=== PATIENT | female | born 1940 ===

== ENCOUNTER 2019-11-16 14:48 | Inpatient (IN) | payer MEDICARE, OTHER ==
[~2019-11-16] VITALS: Ht 152 cm; Wt 111.3 kg
[2019-11-16] MEDS ORDERED: ONDANSETRON 4 MG/2 ML (SDV) Z0FRAN IV PRN (15:15)
[2019-11-16] MEDS ORDERED: ACETAMINOPHEN 325 MG TABLET PO PRN (15:15)
[2019-11-16] MEDS ORDERED: guaiFENesin SYRUP 100 MG/5 ML 10 ML (ROBITUSSIN SF) PO PRN (15:15)
[2019-11-16] MEDS ORDERED: ENOXAPARIN 40 MG/0.4 ML (LOVENOX) SYR SC SCH (15:15)
[2019-11-16] MEDS ORDERED: ENOXAPARIN 40 MG/0.4 ML (LOVENOX) SYR ONE (17:25)
[2019-11-16 18:15] LABS: BASOPHILS % (AUTO) 1 % (0-10); EOSINOPHILS # (AUTO) 0.1 10^3/uL (0.0-0.3); EOSINOPHILS % (AUTO) 2 % (0-10); HEMATOCRIT 28 % (35-52); HEMOGLOBIN 8.3 g/dL (11.5-16.0); LYMPHOCYTES # (AUTO) 1.1 10^3/uL (1.0-4.0); LYMPHOCYTES % (AUTO) 31 % (12-44); MEAN CORPUSCULAR HEMOGLOBIN 27 pg (25-34); MEAN CORPUSCULAR HGB CONC 30 g/dL (32-36); MEAN CORPUSCULAR VOLUME 92 fL (80-99); MEAN PLATELET VOLUME 9.5 fL (9.0-12.2); MONOCYTES # (AUTO) 0.6 10^3/uL (0.0-1.0); MONOCYTES % (AUTO) 17 % (0-12); NEUTROPHILS # (AUTO) 1.7 10^3/uL (1.8-7.8); NEUTROPHILS % (AUTO) 48 % (42-75); PLATELET COUNT 238 10^3/uL (130-400); WHITE BLOOD COUNT 3.6 10^3/uL (4.3-11.0)
--- NOTE | 2019-11-16 18:20 | NUR ---
REPORT RECEIVED FROM JUDITH STOCK RN
[2019-11-16 18:25] LABS: ALBUMIN 3.4 GM/DL (3.2-4.5); POTASSIUM 3.4 MMOL/L (3.6-5.0)
[2019-11-16 18:26] LABS: CALCIUM 8.6 MG/DL (8.5-10.1)
[2019-11-16 18:29] LABS: BILIRUBIN,TOTAL 0.9 MG/DL (0.1-1.0)
[2019-11-16 18:31] LABS: CREATININE SERUM 1.39 MG/DL (0.60-1.30)
--- NOTE | 2019-11-16 18:44 | NUR ---
PT ARRIVED TO ROOM 431, ALEJANDRO NEEDS AT THIS TIME, CALL LIGHT IN REACH, WILL CONTINUE TO MONITOR
[2019-11-16] MEDS: DICLOFENAC 1% GEL 100 GM (VOLTAREN) TUBE TOP SCH (23:41)
[2019-11-17 05:57] LABS: BASOPHILS % (AUTO) 0 % (0-10); EOSINOPHILS # (AUTO) 0.1 10^3/uL (0.0-0.3); EOSINOPHILS % (AUTO) 3 % (0-10); HEMATOCRIT 28 % (35-52); HEMOGLOBIN 8.3 g/dL (11.5-16.0); LYMPHOCYTES # (AUTO) 1.4 10^3/uL (1.0-4.0); LYMPHOCYTES % (AUTO) 36 % (12-44); MEAN CORPUSCULAR HEMOGLOBIN 27 pg (25-34); MEAN CORPUSCULAR HGB CONC 29 g/dL (32-36); MEAN CORPUSCULAR VOLUME 90 fL (80-99); MONOCYTES # (AUTO) 0.7 10^3/uL (0.0-1.0); MONOCYTES % (AUTO) 18 % (0-12); NEUTROPHILS # (AUTO) 1.6 10^3/uL (1.8-7.8); NEUTROPHILS % (AUTO) 42 % (42-75); PLATELET COUNT 230 10^3/uL (130-400); WHITE BLOOD COUNT 3.8 10^3/uL (4.3-11.0)
[2019-11-17 06:13] LABS: ALBUMIN 3.2 GM/DL (3.2-4.5)
[2019-11-17 06:14] LABS: POTASSIUM 3.4 MMOL/L (3.6-5.0)
[2019-11-17 06:15] LABS: CALCIUM 8.4 MG/DL (8.5-10.1)
[2019-11-17 06:16] LABS: TOTAL PROTEIN 5.8 GM/DL (6.4-8.2)
[2019-11-17 06:18] LABS: BILIRUBIN,TOTAL 0.7 MG/DL (0.1-1.0)
[2019-11-17 06:20] LABS: CREATININE SERUM 1.32 MG/DL (0.60-1.30)
--- NOTE | 2019-11-17 07:27 | Diagnostic Imaging Report ---
EXAMINATION: Chest 1 view HISTORY: Pneumonia, COVID positive COMPARISON: None available. FINDINGS: Heart size is enlarged. Pulmonary vasculature is normal. A left-sided cardiac pacemaker is present. Calcification of the aorta. Patchy airspace opacities within the right upper lung and both lung bases. No pleural effusion or pneumothorax. The osseous structures are intact. IMPRESSION: 1. Patchy airspace opacities within the lungs compatible with a pneumonia. 2. Cardiomegaly. Dictated by: Dictated on workstation # [id number]
[2019-11-17] MEDS: dexAMETHasone 6 MG TAB (DECADRON) PO SCH (08:04)
[2019-11-17] MEDS: HYDROcodone/APAP 5 MG/325 MG (LORTAB) TAB PO PRN ×2 (08:08→16:56)
[2019-11-17] MEDS ORDERED: ENOXAPARIN 60 MG/0.6 ML (LOVENOX) SYR SC SCH (09:00)
[2019-11-17] MEDS: DICLOFENAC 1% GEL 100 GM (VOLTAREN) TUBE TOP SCH ×4 (09:34→20:25)
--- NOTE | 2019-11-17 11:54 | History & Physical-Hospitalist ---
History of Present Illness HPI/Chief Complaint Pt is a 79yoCF with a PMH of oxygen dependent COPD, NIDDMII, HTN, pAF, who was direct admitted from [facility] for COVID19. She was recently at [facility] for a stroke work up which was negative. She was found instead apparently to be overtreated for hypertension and her antihypertensives were decreased. She was transferred to [facility] on swing bed status. She developed a fever and cough and COVID testing was done. This was positive. She was tested for COVID just prior to DC from [facility] and was negative at that time. I spoke with the patient and her daughter and both are unsure if they believe the that she actually has COVID. Daughter states that she thinks they were treating her mom "like a leper" and just wanted her out. We discussed treatment options for COVID but they have declined convalescent plasma at this time until theyr'e sure she's positive for COVID. Source: patient Date Seen 11/17/19 Time Seen by a Provider: 11:41 Attending Physician Myesha Gutierrez MD PCP Referring Physician Date of Admission Nov 16, 2019 at 16:59 Home Medications & Allergies Home Medications Reviewed patient Home Medication Reconciliation performed by pharmacy medication reconciliations lead injection mold technician and/or nursing. Patients Allergies have been reviewed. Allergies Allergies Coded Allergies Penicillins (Verified Allergy, Intermediate, 11/17/19) swelling adhesive tape (Verified Allergy, Intermediate, Hives, 11/17/19) cefaclor (Verified Allergy, Intermediate, Hives, 11/17/19) erythromycin base (Verified Allergy, Intermediate, Rash, 11/17/19) rash and swelling aspirin (Verified Allergy, Mild, Hives, 11/17/19) Past Ssgspvz-Htaant-Ldsldt Hx Past Med/Social Hx: Reviewed Nursing Past Med/Soc Hx Patient Social History Employed/Student: retired Smoking Status: Never a Smoker Immunizations Up To Date Date of Pneumonia Vaccine: Oct 16, 2017 Date of Influenza Vaccine: Oct 23, 2019 Past Medical History Respiratory: COPD (2lpm baseline) Cardiac: Atrial Fibrillation, High Cholesterol, Hypertension : No Endocrine: Diabetes, Non-Insulin dep Family History Reviewed Nursing Family Hx No Pertinent Family Hx Review of Systems ROS-Unable to Obtain: limited due to some roger Constitutional: fever EENTM: no symptoms reported Respiratory: cough; No short of breath Cardiovascular: No chest pain, No edema, No palpitations Gastrointestinal: No abdominal pain, No constipation, No diarrhea, No nausea, No vomiting Genitourinary: no symptoms reported Musculoskeletal: no symptoms reported Skin: no symptoms reported Psychiatric/Neurological: No Symptoms Reported Physical Exam Physical Exam Vital Signs Vital Signs - First Documented 11/16/19 17:30 Temp 35.6 Pulse 73 B/P (MAP) 119/42 Pulse Ox 96 O2 Delivery Nasal Cannula O2 Flow Rate 2.00 Capillary Refill : Height, Weight, BMI Height: '" Weight: lbs. oz. kg; 50.64 BMI Method: General Appearance: No Apparent Distress, Chronically ill, Obese HEENT: PERRL/EOMI, Moist Mucous Membranes; No Scleral Icterus (L), No Scleral Icterus (R) Neck: Supple Respiratory: Lungs Clear, No Accessory Muscle Use, Other (on 2lpm) Cardiovascular: Regular Rate, Rhythm, No JVD, No Murmur Gastrointestinal: Normal Bowel Sounds, Non Tender, Soft Extremity: Normal Capillary Refill, No Calf Tenderness, No Pedal Edema Neurologic/Psychiatric: Alert, Oriented x3 (to major details (person, place, year) but not to specific or minor details especially regarding recent hospitalizations), Normal Mood/Affect Skin: Normal Color, Warm/Dry Results Results/Procedures Labs Laboratory Tests 11/16/19 18:00 11/17/19 05:45 Patient resulted labs reviewed. Imaging: Reviewed Imaging Report Imaging [facility], [place] NAME: SHEREE MANRIQUEZ [facility] REC#: [id number] PT STATUS: ADM IN : 1940 PHYSICIAN: MYESHA GUTIERREZ MD ADMIT DATE: 11/16/19 Signed Date of Exam:11/17/19 CHEST 1 VIEW, AP/PA ONLY EXAMINATION: Chest 1 view HISTORY: Pneumonia, COVID positive COMPARISON: None available. FINDINGS: Heart size is enlarged. Pulmonary vasculature is normal. A left-sided cardiac pacemaker is present. Calcification of the aorta. Patchy airspace opacities within the right upper lung and both lung bases. No pleural effusion or pneumothorax. The osseous structures are intact. IMPRESSION: 1. Patchy airspace opacities within the lungs compatible with a pneumonia. 2. Cardiomegaly. Dictated by: Dictated on workstation # [id number] Dict: 11/17/19723 Trans: 11/17/19751 CV [id number] Interpreted by: VENU HOYOS DO Electronically signed by: VENU HOYOS DO 11/17/19 0752 Assessment/Plan Admission Diagnosis COVID19 Admission Status: Inpatient Order (span 2 midnights) Reason for Inpatient Admission: see below Assessment and Plan COVID19 COPD Currently on baseline oxygen so not a candidate for Remdesivir as no covid induced hypoxia Discussed convalescent plasma with patient and daughter, they request confirmatory COVID testing prior to any treatment Decadron High risk for complications because of COPD and multiple chronic medical conditions IS MAT protocol Debility Apparently was on swing bed at [facility] for rehab per patient PT/OT pAF HTN NIDDMII Hypothyroidism No acute management needs, continue home meds DVT ppx: Continue home Xarelto Clinical Quality Measures DVT/VTE Risk/Contraindication: Risk Factor Score Per Nursin RFS Level Per Nursing on Admit: 4+=Very High MYESHA GUTIERREZ MD Nov 17, 2019 11:54
[2019-11-17] MEDS ORDERED: ATOR40TA PO (13:40)
[2019-11-17] MEDS ORDERED: ASCO500W4 PO (13:43)
[2019-11-17] MEDS ORDERED: MECO10005 PO (13:47)
[2019-11-17] MEDS ORDERED: CYAN500T44 PO (13:50)
[2019-11-17] MEDS ORDERED: DULO30CA3 PO (13:53)
[2019-11-17] MEDS ORDERED: FERR-84 PO (13:55)
[2019-11-17] MEDS ORDERED: ERGO50CA PO (13:55)
[2019-11-17] MEDS ORDERED: FLUT1DIS27 IH (13:56)
[2019-11-17] MEDS ORDERED: FLUT9.9S NS (13:57)
[2019-11-17] MEDS ORDERED: GABA300S2 PO (13:58)
[2019-11-17] MEDS ORDERED: LEVO125T6 PO (14:00)
[2019-11-17] MEDS ORDERED: LOSA25TA41 PO (14:01)
[2019-11-17] MEDS ORDERED: MAGN240P PO (14:02)
[2019-11-17] MEDS ORDERED: METO2.5T PO (14:05)
[2019-11-17] MEDS ORDERED: MTP25TSR PO (14:06)
[2019-11-17] MEDS ORDERED: MONT10TA21 PO (14:07)
[2019-11-17] MEDS ORDERED: NYST50002 PO (14:09)
[2019-11-17] MEDS ORDERED: RT-ALBUINH IH (14:11)
[2019-11-17] MEDS ORDERED: PANT20TA2 PO (14:11)
[2019-11-17] MEDS ORDERED: RIVA20TA PO (14:13)
[2019-11-17] MEDS ORDERED: SITA100T12 PO (14:14)
[2019-11-17] MEDS ORDERED: TIOT18CA2 IH (14:15)
[2019-11-17] MEDS ORDERED: TORS20TA3 PO (14:16)
[2019-11-17] MEDS ORDERED: CATHETER FLUSH 10 ML SYR IV PRN (15:00)
--- NOTE | 2019-11-17 15:42 | NUR ---
[facility] AND FA[facility]ED TO THEM A RELEASE OF INFO REGARDING PTS COVID TEST AT FACILITY. FAX NUMBER [phone]. KRANTHI NAYLOR SENT THIS RN PTS RECENT LABS AND PCR COVID TEST THAT SAID THAT COVID WAS DETECTED. DR SWANN MADE AWARE. THIS RN ALSO FINISHED HER MED REC AND DR SWANN RESTARTED MEDS.
--- NOTE | 2019-11-17 19:00 | NUR ---
THIS RN PLACED PTS HYDROCODONE/APAP WITH 14 PILLS IN BOTTLE, WITH COUNT SHEET IN PLACE IN A BIOHAZARD BAG, MORENO BURNS RN WITNESSED NARCOTICS BEING PLACED IN CABINET ON [facility] ROOM.
[2019-11-17] MEDS: ADVAIR HFA 115/21 MCG INHALER 8 GM IH SCH (19:33)
[2019-11-17] MEDS: DULoxetine 30 MG (CYMBALTA) CAP PO SCH (20:24)
[2019-11-17] MEDS ORDERED: NON-FORMULARY MEDICATION 1 EA EA (Fluticasone/Salmeterol (Advair 500-50 Diskus) 1 EACH) IH SCH (21:00)
[2019-11-17] MEDS ORDERED: ENOXAPARIN 40 MG/0.4 ML (LOVENOX) SYR SC SCH (21:00)
[2019-11-17] MEDS: CATHETER FLUSH 10 ML SYR IV SCH (21:05)
--- NOTE | 2019-11-17 21:40 | NUR ---
MEHREEN CUNNINGHAM (INFECTION CONTROL) NOTIFIED DARRICK FREY OF CONFIRMED POSITIVE COVID TEST OF SHEREE MANRIQUEZ. MESSAGE PASSED ON TO THIS RN. WILL CONTINUE TO MONITOR AT THIS TIME.
[2019-11-18] MEDS: LEVOTHYROXINE 125 MCG (LEVOTHROID) TABLET PO SCH (06:07)
[2019-11-18] MEDS: CATHETER FLUSH 10 ML SYR IV SCH ×3 (06:07→20:01)
[2019-11-18] MEDS ORDERED: MAGNESIUM OXIDE (MAG-OX)400 MG TAB PO SCH (08:00)
[2019-11-18 08:05] LABS: BASOPHILS % (AUTO) 0 % (0-10); EOSINOPHILS % (AUTO) 0 % (0-10); HEMATOCRIT 30 % (35-52); HEMOGLOBIN 9.1 g/dL (11.5-16.0); LYMPHOCYTES # (AUTO) 0.9 10^3/uL (1.0-4.0); LYMPHOCYTES % (AUTO) 29 % (12-44); MEAN CORPUSCULAR HEMOGLOBIN 27 pg (25-34); MEAN CORPUSCULAR HGB CONC 30 g/dL (32-36); MEAN CORPUSCULAR VOLUME 89 fL (80-99); MEAN PLATELET VOLUME 9.1 fL (9.0-12.2); MONOCYTES # (AUTO) 0.6 10^3/uL (0.0-1.0); MONOCYTES % (AUTO) 18 % (0-12); NEUTROPHILS # (AUTO) 1.7 10^3/uL (1.8-7.8); NEUTROPHILS % (AUTO) 52 % (42-75); PLATELET COUNT 293 10^3/uL (130-400); WHITE BLOOD COUNT 3.3 10^3/uL (4.3-11.0)
[2019-11-18 08:26] LABS: ANISOCYTOSIS SLIGHT; BAND NEUTROPHILS 4 %; BASOPHILS % (MANUAL) 1 %; HYPOCHROMASIA MODERATE; LYMPHOCYTES % (MANUAL) 30 %; MONOCYTES % (MANUAL) 11 %; NEUTROPHILS % (MANUAL) 54 %; POIKILOCYTOSIS SLIGHT
[2019-11-18] MEDS: RIVAROXABAN 20 MG TABLET (XARELTO) PO SCH (08:32)
[2019-11-18] MEDS: LINAGLIPTIN (TRADJENTA) 5 MG TABLET PO SCH (08:32)
[2019-11-18] MEDS: PANTOPRAZOLE 20 MG TABLET (PROTONIX) PO SCH (08:32)
[2019-11-18] MEDS: DULoxetine 30 MG (CYMBALTA) CAP PO SCH ×2 (08:32→19:59)
[2019-11-18] MEDS: dexAMETHasone 6 MG TAB (DECADRON) PO SCH (08:32)
[2019-11-18] MEDS: MAGNESIUM OXIDE (MAG-OX)400 MG TAB PO SCH (08:32)
[2019-11-18] MEDS: DICLOFENAC 1% GEL 100 GM (VOLTAREN) TUBE TOP SCH ×4 (08:32→20:01)
[2019-11-18] MEDS: MONTELUKAST 10 MG (SINGULAIR) TAB PO SCH (08:32)
[2019-11-18 08:34] LABS: ALBUMIN 3.5 GM/DL (3.2-4.5)
[2019-11-18] MEDS: FLUTICASONE NASAL SPRAY (FLONASE) 16 GM BTL NS SCH (08:34)
[2019-11-18 08:35] LABS: POTASSIUM 3.9 MMOL/L (3.6-5.0)
[2019-11-18 08:36] LABS: CALCIUM 8.9 MG/DL (8.5-10.1)
[2019-11-18 08:37] LABS: TOTAL PROTEIN 6.3 GM/DL (6.4-8.2)
[2019-11-18 08:39] LABS: BILIRUBIN,TOTAL 0.6 MG/DL (0.1-1.0)
[2019-11-18 08:41] LABS: CREATININE SERUM 1.16 MG/DL (0.60-1.30)
[2019-11-18] MEDS ORDERED: MAGNESIUM OXIDE PO SCH (09:00)
[2019-11-18] MEDS ORDERED: NON-FORMULARY MEDICATION 1 EA EA (Fluticasone Propionate (Flonase Allergy Relief) 2 SPRAY) NS SCH (09:00)
[2019-11-18] MEDS ORDERED: NON-FORMULARY MEDICATION 1 EA EA (Sitagliptin Phosphate (Januvia) 100 MG) PO SCH (09:00)
[2019-11-18] MEDS ORDERED: TIOTROPIUM BROMIDE (SPIRIVA) 5'S INHALER IH SCH (09:00)
[2019-11-18] MEDS: UMECLIDINIUM BROMIDE (INCRUSE ELLIPTA) 7'S IH SCH (09:26)
[2019-11-18] MEDS: ADVAIR HFA 115/21 MCG INHALER 8 GM IH SCH ×2 (09:26→19:27)
--- NOTE | 2019-11-18 11:17 | Progress Note - Hospitalist ---
Subjective HPI/CC On Admission Date Seen by Provider: Nov 18, 2019 Time Seen by Provider: 10:50 Pt is a 79yoCF with a PMH of oxygen dependent COPD, NIDDMII, HTN, pAF, who was direct admitted from [facility] for COVID19. She was recently at [facility] for a stroke work up which was negative. She was found instead appa rently to be overtreated for hypertension and her antihypertensives were decreased. She was transferred to [facility] on swing bed status. She developed a fever and cough and COVID testing was done. This was positive. She was tested for COVID just prior to DC from [facility] and was negative at that time. I spoke with the patient and her daughter and both are unsure if they believe the that she actually has COVID. Daughter states that she thinks they were treating her mom "like a leper" and just wanted her out. We discussed treatment options for COVID but they have declined convalescent plasma at this time until theyr'e sure she's positive for COVID. Subjective/Events-last exam She reports feeling well. She denies any shortness of breath. She denies cough. She denies fever. She has no pain. She wants to be discharged. Objective Exam Vital Signs Vital Signs Date Time Temp Pulse Resp B/P (MAP) Pulse Ox O2 Delivery O2 Flow Rate FiO2 11/18/19 09:27 95 Nasal Cannula 2.00 11/18/19 08:34 36.7 68 171/76 Capillary Refill : Less Than 3 Seconds General Appearance: No Apparent Distress, Obese Respiratory: Lungs Clear, Normal Breath Sounds, No Respiratory Distress Cardiovascular: Regular Rate, Rhythm, No Edema, No Murmur Gastrointestinal: Normal Bowel Sounds, Non Tender, Soft Extremity: Normal Inspection, Non Tender, No Pedal Edema Neurologic/Psychiatric: Alert, Normal Mood/Affect, Disoriented, Motor Weakness Skin: Normal Color, Warm/Dry Results/Procedures Lab Laboratory Tests 11/18/19 07:45 Patient resulted labs reviewed. Imaging: Reviewed Imaging Report Assessment/Plan Assessment and Plan Assess & Plan/Chief Complaint COVID19 COPD Decadron Hold off on Remdesivir and convalescent plasma with oxygen at baseline High risk for complications because of COPD and multiple chronic medical conditions IS MAT Debility Apparently was on swing bed at [facility] for rehab per patient PT/OT pAF HTN NIDDMII Hypothyroidism No acute management needs, continue home meds DVT ppx: Already receiving therapeutic anticoagulation Diagnosis/Problems Diagnosis/Problems (1) COVID-19 Status: Acute (2) Chronic respiratory failure with hypoxia Status: Chronic (3) COPD (chronic obstructive pulmonary disease) Status: Chronic (4) Debility Status: Acute (5) Confusion Status: Acute Clinical Quality Measures DVT/VTE Risk/Contraindication: Risk Factor Score Per Nursin RFS Level Per Nursing on Admit: 4+=Very High EVANGELINA OSORIO MD Nov 18, 2019 11:17
--- NOTE | 2019-11-18 12:21 | Physical Therapy Evaluation ---
PT Evaluation-General Medical Diagnosis Admission Date Nov 16, 2019 at 16:59 Medical Diagnosis: Covid (+) Onset Date: Nov 16, 2019 Therapy Diagnosis Therapy Diagnosis: debility Precautions Precautions/Isolations: Contact Isolation, Droplet Isolation, Fall Prevention Referral Physician: Matt Reason for Referral: Evaluation/Treatment Medical History Pertinent Medical History: Atrial Fib, COPD, DM, HTN, Renal Insufficiency Current History direct admit from [facility] Reviewed History: Yes Social History Home: Single Level Current Living Status: Other Family Entry Into Home: Level Entry Prior Prior Level of Function SCALE: Activities may be completed with or without assistive devices. 8-Lhmisqzyqp-mgpkzeh completes the activity by him/herself with no assistance from a helper. 5-Set-up or Clean-up Assistance-helper sets up or cleans up; patient completes activity. [place] assists only prior to or following the activity. 4-Supervision or Touching Assistance-helper provides verbal cues and/or touching/steadying and/or contact guard assistance as patient completes activity. Assistance may be provided throughout the activity or intermittently. 3-Partial/Moderate Assistance-helper does LESS THAN HALF the effort. [place] lifts, holds or supports trunk or limbs, but provides less than half the effort. 2-Substantial/Maximal Assistance-helper does MORE THAN HALF the effort. [place] lifts or holds trunk or limbs and provides more than half the effort. 5-Blcdpaqop-pidnqz does ALL the effort. Patient does none of the effort to complete the activity. Or, the assistance of 2 or more helpers is required for the patient to complete the activity. If activity was not attempted, code reason: 7-Patient Refused. 9-Not Applicable-not attempted and the patient did not perform the activity before the current illness, exacerbation or injury. 10-Not Attempted due to Environmental Limitations-(lack of equipment, weather restraints, etc.). 88-Not Attempted due to Medical Conditions or Safety Concerns. Bed Mobility: 5 Transfers (B,C,W/C): 5 Gait: 5 Stairs: 9 Indoor Mobility (Ambulation): Independent Stairs: Not Applicalbe Prior Devices Use: Walker PT Evaluation-Current Subjective Patient agrees to PT. Dons shoes independently. Objective Patient Orientation: Person, Time, Situation Attachments: Oxygen ROM/Strength ROM Lower Extremities bilateral LE WFL Strength Lower Extremities 4/5 grossly bilateral LE Integumentary/Posture Integumentary refer to nursing notes Bowel Incontinence: No Bladder Incontinence: No Posture WFL Neuromuscular (Tone, Coordination, Reflexes) grossly intact Sensory Vision: Functional Hearing: Functional Sensation Right Lower Extremit: Intact Sensation Left Lower Extremity: Intact Transfers Roll Left to Right (QC): 6 Sit to Lying (QC): 6 Lying to Sitting/Side of Bed(Q: 6 Sit to Stand (QC): 5 Chair/Pav-yp-Umwxe Xfer(QC): 5 Gait Does the Patient Walk?: Yes Mode of Locomotion: Walk Anticipated Mode of Locomotion: Walk Walk 10 feet (QC): 5 Walk 50 ft with 2 Turns(QC): 5 Gait Assistive Device: FWW Comments/Gait Description safe and functional with no deviation Balance Sitting Static: Normal Sitting Dynamic: Normal Standing Static: Normal Standing Dynamic: Normal Assessment/Needs 79 y.o. female, will be seen short term by skilled PT to address functional mobility to ensure safe return to home with family at maximum LOF. Patient appears to have some confusion. Physician confirms. Rehab Potential: Fair PT Long-Term Goals Accounts Receivable Clerk Goals PT Accounts Receivable Clerk Goals Time Frame: Nov 29, 2019 Roll Left & Right (QC): 6 Sit to Lying (QC): 6 Lying-Sitting on Side/Bed(QC): 6 Sit to Stand (QC): 6 Chair/Wzq-gi-Wbcen Xfer(QC): 6 Toilet Transfer (QC): 6 Does the Patient Walk: Yes Walk 10 feet (QC): 6 Walk 50ft with 2 Turns (QC): 6 Walk 150 ft (QC): 6 PT Plan Treatment/Plan Treatment Plan: Continue Plan of Care Treatment Plan: Education, Functional Activity Paty, Functional Strength, Gait, Safety, Therapeutic Exercise, Transfers Treatment Duration: Nov 29, 2019 Frequency: 5 times per week Estimated Hrs Per Day: .25 hour per day Time/GCodes Time In: 1112 Time Out: 1126 Total Billed Treatment Time: 14 Total Billed Treatment 1 visit EVMod 14 min DENISE FERREIRA PT Nov 18, 2019 12:21
[2019-11-19] MEDS: CATHETER FLUSH 10 ML SYR IV SCH ×3 (05:28→21:17)
[2019-11-19] MEDS: LEVOTHYROXINE 125 MCG (LEVOTHROID) TABLET PO SCH (05:28)
[2019-11-19] MEDS: ADVAIR HFA 115/21 MCG INHALER 8 GM IH SCH ×2 (07:20→20:44)
[2019-11-19] MEDS: UMECLIDINIUM BROMIDE (INCRUSE ELLIPTA) 7'S IH SCH (07:20)
[2019-11-19] MEDS: LINAGLIPTIN (TRADJENTA) 5 MG TABLET PO SCH (08:12)
[2019-11-19] MEDS: RIVAROXABAN 20 MG TABLET (XARELTO) PO SCH (08:12)
[2019-11-19] MEDS: PANTOPRAZOLE 20 MG TABLET (PROTONIX) PO SCH (08:12)
[2019-11-19] MEDS: DULoxetine 30 MG (CYMBALTA) CAP PO SCH ×2 (08:12→21:16)
[2019-11-19] MEDS: MAGNESIUM OXIDE (MAG-OX)400 MG TAB PO SCH (08:12)
[2019-11-19] MEDS: MONTELUKAST 10 MG (SINGULAIR) TAB PO SCH (08:12)
[2019-11-19] MEDS: DICLOFENAC 1% GEL 100 GM (VOLTAREN) TUBE TOP SCH ×4 (08:13→21:17)
[2019-11-19] MEDS: FLUTICASONE NASAL SPRAY (FLONASE) 16 GM BTL NS SCH (08:13)
[2019-11-19] MEDS: dexAMETHasone 6 MG TAB (DECADRON) PO SCH (08:17)
[2019-11-19 10:56] LABS: BASOPHILS % (AUTO) 0 % (0-10); EOSINOPHILS % (AUTO) 0 % (0-10); HEMATOCRIT 31 % (35-52); HEMOGLOBIN 9.7 g/dL (11.5-16.0); LYMPHOCYTES # (AUTO) 0.9 10^3/uL (1.0-4.0); LYMPHOCYTES % (AUTO) 12 % (12-44); MEAN CORPUSCULAR HEMOGLOBIN 27 pg (25-34); MEAN CORPUSCULAR HGB CONC 31 g/dL (32-36); MEAN CORPUSCULAR VOLUME 87 fL (80-99); MONOCYTES # (AUTO) 0.8 10^3/uL (0.0-1.0); MONOCYTES % (AUTO) 10 % (0-12); NEUTROPHILS # (AUTO) 5.7 10^3/uL (1.8-7.8); NEUTROPHILS % (AUTO) 77 % (42-75); PLATELET COUNT 330 10^3/uL (130-400); WHITE BLOOD COUNT 7.5 10^3/uL (4.3-11.0)
[2019-11-19 11:04] LABS: ALBUMIN 3.6 GM/DL (3.2-4.5); POTASSIUM 3.2 MMOL/L (3.6-5.0)
[2019-11-19 11:05] LABS: CALCIUM 8.9 MG/DL (8.5-10.1)
[2019-11-19 11:06] LABS: TOTAL PROTEIN 6.4 GM/DL (6.4-8.2)
[2019-11-19 11:08] LABS: BILIRUBIN,TOTAL 0.8 MG/DL (0.1-1.0)
[2019-11-19 11:10] LABS: CREATININE SERUM 1.05 MG/DL (0.60-1.30)
--- NOTE | 2019-11-19 11:42 | Progress Note - Hospitalist ---
Subjective HPI/CC On Admission Date Seen by Provider: Nov 19, 2019 Time Seen by Provider: 10:30 Pt is a 79yoCF with a PMH of oxygen dependent COPD, NIDDMII, HTN, pAF, who was direct admitted from [facility] for COVID19. She was recently at [facility] for a stroke work up which was negative. She was found instead appa rently to be overtreated for hypertension and her antihypertensives were decreased. She was transferred to [facility] on swing bed status. She developed a fever and cough and COVID testing was done. This was positive. She was tested for COVID just prior to DC from [facility] and was negative at that time. I spoke with the patient and her daughter and both are unsure if they believe the that she actually has COVID. Daughter states that she thinks they were treating her mom "like a leper" and just wanted her out. We discussed treatment options for COVID but they have declined convalescent plasma at this time until theyr'e sure she's positive for COVID. Subjective/Events-last exam She denies any shortness of breath. She is not having a cough. She denies fevers. She has no complaints or concerns. Objective Exam Vital Signs Vital Signs Date Time Temp Pulse Resp B/P (MAP) Pulse Ox O2 Delivery O2 Flow Rate FiO2 11/19/19 11:32 36.5 65 159/76 96 Nasal Cannula 1.00 Capillary Refill : Less Than 3 Seconds General Appearance: No Apparent Distress, Obese Respiratory: Lungs Clear, Normal Breath Sounds, No Respiratory Distress Cardiovascular: Regular Rate, Rhythm, No Edema, No Murmur Gastrointestinal: Normal Bowel Sounds, Non Tender, Soft Extremity: Normal Inspection, Non Tender, No Pedal Edema Neurologic/Psychiatric: Alert, No Motor/Sensory Deficits, Normal Mood/Affect, Disoriented Skin: Normal Color, Warm/Dry Results/Procedures Lab Laboratory Tests 11/19/19 10:52 Patient resulted labs reviewed. Imaging: Reviewed Imaging Report Assessment/Plan Assessment and Plan Assess & Plan/Chief Complaint COVID19 Chronic respiratory failure with hypoxia COPD Oxygen requirement at baseline Decadron Hold off on Remdesivir and convalescent plasma with oxygen at baseline High risk for complications because of COPD and multiple chronic medical conditions IS MAT access services assistant consulted for discharge planning Debility Admitted from swing bed at [facility] for rehab PT/OT pAF HTN NIDDMII Hypothyroidism No acute management needs, continue home meds DVT ppx: Already receiving therapeutic anticoagulation Diagnosis/Problems Diagnosis/Problems (1) COVID-19 Status: Acute (2) Chronic respiratory failure with hypoxia Status: Chronic (3) COPD (chronic obstructive pulmonary disease) Status: Chronic (4) Debility Status: Acute (5) Confusion Status: Chronic Clinical Quality Measures DVT/VTE Risk/Contraindication: Risk Factor Score Per Nursin RFS Level Per Nursing on Admit: 4+=Very High EVANGELINA OSORIO MD Nov 19, 2019 11:42
--- NOTE | 2019-11-19 12:13 | Physical Therapy Daily Note ---
PT Daily Note-Current Subjective Patient agrees to PT. No c/o. Mental Status Patient Orientation: Confused Attachments: Oxygen Transfers SCALE: Activities may be completed with or without assistive devices. 3-Bqnpneljdy-ddixgfi completes the activity by him/herself with no assistance from a helper. 5-Set-up or Clean-up Assistance-helper sets up or cleans up; patient completes activity. [place] assists only prior to or following the activity. 4-Supervision or Touching Assistance-helper provides verbal cues and/or touching/steadying and/or contact guard assistance as patient completes activity. Assistance may be provided throughout the activity or intermittently. 3-Partial/Moderate Assistance-helper does LESS THAN HALF the effort. [place] lifts, holds or supports trunk or limbs, but provides less than half the effort. 2-Substantial/Maximal Assistance-helper does MORE THAN HALF the effort. [place] lifts or holds trunk or limbs and provides more than half the effort. 3-Dkaxodaci-zpqqhp does ALL the effort. Patient does none of the effort to complete the activity. Or, the assistance of 2 or more helpers is required for the patient to complete the activity. If activity was not attempted, code reason: 7-Patient Refused. 9-Not Applicable-not attempted and the patient did not perform the activity before the current illness, exacerbation or injury. 10-Not Attempted due to Environmental Limitations-(lack of equipment, weather restraints, etc.). 88-Not Attempted due to Medical Conditions or Safety Concerns. Lying to Sitting/Side of Bed(Q: 6 Sit to Stand (QC): 6 Chair/Tzy-qa-Gqasa Xfer(QC): 5 Gait Training Does the Patient Walk?: Yes Distance: 50' Walk 10 feet (QC): 5 Walk 50 ft with 2 Turns(QC): 5 Walk 150 ft (QC): 7 Gait Assistive Device: FWW patient ceased ambulation due to her knee (however, unable to tell this PT about what is wrong with her knee) Exercises Seated Therapy Exercises: Ankle pumps, Long arc quads Seated Reps: 15 Assessment Patient tolerated treatment well and is up in recliner with needs met. PT Nursing Home Goals Clinical Staff Educator Goals PT Nursing Home Goals Time Frame: Nov 29, 2019 Roll Left & Right (QC): 6 Sit to Lying (QC): 6 Lying-Sitting on Side/Bed(QC): 6 Sit to Stand (QC): 6 Chair/Lte-fu-Ffizy Xfer(QC): 6 Toilet Transfer (QC): 6 Does the Patient Walk: Yes Walk 10 feet (QC): 6 Walk 50ft with 2 Turns (QC): 6 Walk 150 ft (QC): 6 PT Plan Treatment/Plan Treatment Plan: Continue Plan of Care Treatment Plan: Education, Functional Activity Paty, Functional Strength, Gait, Safety, Therapeutic Exercise, Transfers Treatment Duration: Nov 29, 2019 Frequency: 5 times per week Estimated Hrs Per Day: .25 hour per day Time/GCodes Time In: 1125 Time Out: 1135 Total Billed Treatment Time: 10 Total Billed Treatment 1 visit FA 10 min DENISE FERREIRA PT Nov 19, 2019 12:13
[2019-11-19] MEDS: MAGNESIUM 1 GM/100 ML IVPB 100 ML IV SCH (13:40)
[2019-11-19] MEDS: POTASSIUM CL 10MEQ/50ML IVPB 50 ML IV SCH (13:44)
--- NOTE | 2019-11-19 13:52 | NUR ---
DISCHARGE PLANNING: Anticipate that the patient will dismiss tomorrow 11/19 with HHC and continued need of oxygen. Prior to this hospitalization she has worn 2LPM via NC continuous. She is currently using o2 at 1LPM via NC continuous. An oxygen study has been ordered by her doctor to determine how much oxygen she will require at discharge. I have placed a call to her primary care physician in [place], [place] (Dr. Tovar) to see what home health care agency she has used in the recent past. The patient can not recall and her daughter (Elizabeth) is unsure. They would like to use that HHC once that is determined. She also uses [facility] out of [place], [place] for her medical equipment needs. Her son in-law will bring an extra portable tank when he comes to pick her up tomorrow and her daughter Elizabeth reports that I do not need to contact [facility] at this time. I will follow their wishes. Addendum: 11/19/19 at 1553 by FLORENCE MENDOZA RN Dr. Tovar's office called me back to let me know that the patient has used [facility] out of [facility] for past HHC needs. I contacted them at phone number [phone] and then faxed what clinical information I have at this time to them at fax number [phone]. They are unsure if they will be able to accept or not due to "being maxed out on managed medicare plans". They will review and let me know if they can accept.
[2019-11-19] MEDS: KCL 20 MEQ TAB (K-DUR) PO SCH ×3 (14:24→16:22)
[2019-11-20] MEDS: LEVOTHYROXINE 125 MCG (LEVOTHROID) TABLET PO SCH (06:26)
[2019-11-20] MEDS: CATHETER FLUSH 10 ML SYR IV SCH ×2 (06:27→15:02)
[2019-11-20 08:21] LABS: BASOPHILS % (AUTO) 0 % (0-10); EOSINOPHILS % (AUTO) 0 % (0-10); HEMATOCRIT 31 % (35-52); HEMOGLOBIN 9.7 g/dL (11.5-16.0); LYMPHOCYTES % (AUTO) 11 % (12-44); MEAN CORPUSCULAR HEMOGLOBIN 27 pg (25-34); MEAN CORPUSCULAR HGB CONC 32 g/dL (32-36); MEAN CORPUSCULAR VOLUME 86 fL (80-99); MEAN PLATELET VOLUME 9.2 fL (9.0-12.2); MONOCYTES # (AUTO) 1.4 10^3/uL (0.0-1.0); MONOCYTES % (AUTO) 15 % (0-12); NEUTROPHILS % (AUTO) 73 % (42-75); PLATELET COUNT 338 10^3/uL (130-400); WHITE BLOOD COUNT 9.6 10^3/uL (4.3-11.0)
[2019-11-20 08:33] LABS: ALBUMIN 3.5 GM/DL (3.2-4.5); BILIRUBIN,TOTAL 0.8 MG/DL (0.1-1.0); CALCIUM 8.8 MG/DL (8.5-10.1); CREATININE SERUM 1.07 MG/DL (0.60-1.30); MAGNESIUM 1.9 MG/DL (1.6-2.4); POTASSIUM 3.8 MMOL/L (3.6-5.0); TOTAL PROTEIN 6.2 GM/DL (6.4-8.2)
[2019-11-20] MEDS: POTASSIUM CL 10MEQ/50ML IVPB 50 ML IV SCH (08:57)
[2019-11-20] MEDS: PANTOPRAZOLE 20 MG TABLET (PROTONIX) PO SCH (08:58)
[2019-11-20] MEDS: KCL 20 MEQ TAB (K-DUR) PO SCH (08:58)
[2019-11-20] MEDS: MAGNESIUM 1 GM/100 ML IVPB 100 ML IV SCH (08:58)
[2019-11-20] MEDS: DULoxetine 30 MG (CYMBALTA) CAP PO SCH (08:58)
[2019-11-20] MEDS: dexAMETHasone 6 MG TAB (DECADRON) PO SCH (08:58)
[2019-11-20] MEDS: MONTELUKAST 10 MG (SINGULAIR) TAB PO SCH (08:59)
[2019-11-20] MEDS: MAGNESIUM OXIDE (MAG-OX)400 MG TAB PO SCH (08:59)
[2019-11-20] MEDS: FLUTICASONE NASAL SPRAY (FLONASE) 16 GM BTL NS SCH (08:59)
[2019-11-20] MEDS: DICLOFENAC 1% GEL 100 GM (VOLTAREN) TUBE TOP SCH ×2 (08:59→15:02)
[2019-11-20] MEDS: RIVAROXABAN 20 MG TABLET (XARELTO) PO SCH (08:59)
[2019-11-20] MEDS: LINAGLIPTIN (TRADJENTA) 5 MG TABLET PO SCH (08:59)
[2019-11-20] MEDS: ADVAIR HFA 115/21 MCG INHALER 8 GM IH SCH (09:00)
[2019-11-20] MEDS: UMECLIDINIUM BROMIDE (INCRUSE ELLIPTA) 7'S IH SCH (09:00)
--- NOTE | 2019-11-20 11:08 | NUR ---
CM FINALIZED DISCHARGE PLAN: Patient is dismissing to home today with Home Health Care. She has selected [facility] as her provider for [facility] and they have confirmed that they will be able to follow her on their service. Her son in-law will be bringing her oxygen tank with him to the hospital for transport. He will be here later this afternoon to pick her up d/t his own medical f/u appointments. I spoke with her daughter Elizabeth this morning and they are ready to get her home. I gave her the above information and let her know that [facility] should be reaching out to them to schedule a time to come to the house. She voiced appreciation for all of the care her mom has received while here and denied any further needs or concerns at this time.
--- NOTE | 2019-11-20 11:19 | Discharge Summary ---
Discharge Summary Reconcile Patient Problems Problems Reviewed?: Yes Instructions for Patient Via [facility], Assessment/Instructions Take indications as prescribed. Follow-up with your primary care physician in 1-2 weeks. You're being set up with home health care for ongoing therapies. Return with worsening shortness of breath or if you feel like you're getting worse. Physician to follow Patient: Guy Discharge Diet for Home: No Restrictions Hospital Course Date of Admission: Nov 16, 2019 at 16:59 Admission Diagnosis : COVID-19 Family Physician/Provider: Date of Discharge: 11/20/19 Discharge Diagnosis: COVID-19 Hospital Course: Gely Allen is a 79-year-old female who was admitted with COVID-19. She had been admitted on swing bed in [facility]. She had a positive PCR test for coronavirus. She has a history of COPD and uses 2 L of oxygen continuously. Her oxygen requirement remained at baseline. She was treated with Decadron. She was not given Remdesivir or convalescent plasma since she was at her baseline. She was evaluated by physical therapy and was doing well enough that she could be discharged home with home health. She was discharged home in stable condition. Labs and Pending Lab Test: Laboratory Tests 11/19/19 13:09: Glucometer 187H 11/19/19 16:38: Glucometer 148H 11/19/19 20:10: Glucometer 173H 11/20/19 06:25: Glucometer 148H 11/20/19 08:10: White Blood Count 9.6, Red Blood Count 3.55L, Hemoglobin 9.7L, Hematocrit 31L, Mean Corpuscular Volume 86, Mean Corpuscular Hemoglobin 27, Mean Corpuscular Hemoglobin Concent 32, Red Cell Distribution Width 16.5H, Platelet Count 338, Mean Platelet Volume 9.2, Immature Granulocyte % (Auto) 1, Neutrophils (%) (Auto) 73, Lymphocytes (%) (Auto) 11L, Monocytes (%) (Auto) 15H, Eosinophils (%) (Auto) 0, Basophils (%) (Auto) 0, Neutrophils # (Auto) 7.0, Lymphocytes # (Auto) 1.0, Monocytes # (Auto) 1.4H, Eosinophils # (Auto) 0.0, Basophils # (Auto) 0.0, Immature Granulocyte # (Auto) 0.1, Sodium Level 141, Potassium Level 3.8, Chloride Level 99, Carbon Dioxide Level 30, Anion Gap 12, Blood Urea Nitrogen 21H, Creatinine 1.07, Estimat Glomerular Filtration Rate 50, BUN/Creatinine Ratio 20, Glucose Level 127H, Calcium Level 8.8, Corrected Calcium 9.2, Magnesium Level 1.9, Total Bilirubin 0.8, Aspartate Amino Transf (AST/SGOT) 20, Alanine Aminotransferase (ALT/SGPT) 12, Alkaline Phosphatase 63, Total Protein 6.2L, Albumin 3.5 Microbiology 11/16/19 MRSA Screen - Final, Complete MRSA not isolated Home Meds Active Reported Torsemide 20 Mg Tablet 20 Mg PO DAILY 30 Days Spiriva (Tiotropium [place]) 1 Inh Aerp 1 Inh IH DAILY 30 Days Januvia (Sitagliptin Phosphate) 100 Mg Tablet 100 Mg PO DAILY 30 Days Xarelto (Rivaroxaban) 20 Mg Tablet 20 Mg PO DAILY 30 Days Proair Hfa (Albuterol Sulfate) 1 Puff Puff 2 Puff IH Q4H 30 Days 1 PUFF = 90 MCG Protonix (Pantoprazole Sodium) 20 Mg Tablet.dr 20 Mg PO DAILY 30 Days Nystatin 500,000 Unit Tablet 500,000 Unit PO PRN 30 Days Singulair (Montelukast Sodium) 10 Mg Tablet 10 Mg PO DAILY 30 Days Metoprolol Succinate 25 Mg Tab.er.24h 25 Mg PO DAILY 30 Days Metolazone 2.5 Mg Tablet 2.5 Mg PO UD 30 Days TAKE 1 TABLET ON MONDAY, MONDAY, MONDAY AM, PRIOR TO LASIX Magnesium Oxide 400 (Magnesium Oxide) 240 Mg Powd.pack 240 Mg PO DAILY 30 Days Losartan Potassium 25 Mg Tablet 25 Mg PO DAILY 30 Days Levothyroxine Sodium 125 Mcg Tablet 125 Mcg PO DAILY 30 Days Gabapentin 300 Mg/6 Ml Solution 300 Mg PO TID 30 Days Flonase Allergy Relief (Fluticasone Propionate) 9.9 Ml [place].susp 2 [place] NS DAILY 2 SPRAYS PER NOSTRIL DAILY X 2 DAYS THEN 1 SPRAY DAILY Advair 500-50 Diskus (Fluticasone/Salmeterol) 1 Each Blst.w.dev 1 Each IH BID 30 Days Iron (Ferrous Sulfate) 325 Mg Tablet 325 Mg PO BID 30 Days Vitamin D2 (Ergocalciferol (Vitamin D2)) 50 Mcg Capsule 50 Mcg PO WEEK 30 Days Cymbalta (Duloxetine HCl) 30 Mg Capsule.dr 30 Mg PO BID 30 Days B-12 (Cyanocobalamin (Vitamin B-12)) 500 Mcg Tablet 500 Mcg PO DAILY 30 Days Vitamin C 500 mg Wafer (Ascorbic Acid/Ascorbate Sodium) 500 Mg Wafer 500 Mg PO DAILY 30 Days Lipitor (Atorvastatin Calcium) 40 Mg Tablet 40 Mg PO HS 30 Days Patient Allergies: Coded Allergies: Penicillins (Verified Allergy, Intermediate, 11/17/19) swelling adhesive tape (Verified Allergy, Intermediate, Hives, 11/17/19) cefaclor (Verified Allergy, Intermediate, Hives, 11/17/19) erythromycin base (Verified Allergy, Intermediate, Rash, 11/17/19) rash and swelling aspirin (Verified Allergy, Mild, Hives, 11/17/19) Home Health Need/Face to Face Date of Face to Face: Nov 20, 2019 Clinical Findings: Generalized weakness and fatigue, Muscle weakness I have seen Pt [id number]: Yes Discharged To: Home Diagnosis/Conditions: COVID-19 Debility Problems/Diagnosis/Condition: (1) COVID-19 (2) Debility (3) Chronic respiratory failure with hypoxia Patient is Homebound due to: Peg fall risk due to instabilty, Muscle weakness Homebound Status Due to the above stated illness, injury or surgical procedure (medical condition or diagnosis) and associated clinical findings, the patient is homebound because of his/her inability to leave home except with aid of a supportive device and/or person AND leaving the home requires a considerable and taxing effort or is medically contraindicated. Pt req the following assistanc: Aid of another person, [facility] Nursing Orders Home Health Services Order: Nursing Services, Supervisor [employer]-Evaluate & Treat, Physical Therapy-Evaluate & Treat Therapy Orders Therapy Orders: OT (must have SN or PT order), Physical Therapy Therapy Specific Orders: Eval assistive deivces, Teach enviro modifications/safety, Gait training, Increase strength/endurance Certify Stmt I certify that this patient is under my care and that I, a nurse practitioner or a physician; a physiotherapy assistant working with me, had a face to face encounter that - meets the physician face to face encounter requirements with this patient as dated. Discharge Physical Exam General: Alert, Cooperative, No Acute Distress, Other (confused) HEENT: Atraumatic, EOMI, Mucous Memb Moist/[place] Lungs: Clear to Auscultation, Normal Air Movement Heart: Regular Rate, Normal S1, Normal S2, No Murmurs Abdomen: Normal Bowel Sounds, Soft, No Tenderness Extremities: No Edema, No Tenderness/Swelling Skin: No Rashes, No Significant Lesion Neuro: Normal Speech, Other (motor weakness) Psych/Mental Status: Mood NL EVANGELINA OSORIO MD Nov 20, 2019 11:19
--- NOTE | 2019-11-20 14:10 | NUR ---
"RD ASSESSMENT PMHx: COPD; DM; HTN; hypercholesterolemia; PT INTERACTION: Note pt is COVID-19 positive and in isolation. Note attempt to contact pt for nutrition assessment via phone, but pt did not answer. Note all information is per chart review. Note avg PO intake 43% x3d. Note last BM was 11/18, and pt not currently on bowel regimen. Note unable to determine recent wt hx. Note unable to determine current level of DM management, and unable to determine recent HbA1c. ABNORMAL NUTRITION-RELATED LAB VALUES LOW: Pro 6.2; HIGH: BUN 21; glu 127 Est. kcal needs: 1675 kcal | 15 kcal/kg Est. Pro needs: 89 g Pro | 0.8 g Pro/kg PES STATEMENT: Inadequate oral intake (NI-2.1) related to loss of appetite as evidenced by chart review | avg PO intake 43% x1d INTERVENTION: Continue with current diet order of Regular diet. Pt may benefit from consistent CHO restriction if blood glucose levels become elevated. Add Glucerna to meals TID, for increased kcal intake. Provides 220 kcal and 10 g Pro per serving. Did not offer diet education on DM management, d/t COVID isolation. Will continue to follow and reassess as pt needs, intake, and status change. Beata Ugalde, MS RD LD"
--- NOTE | 2019-11-20 14:21 | Physical Therapy Daily Note ---
PT Daily Note-Current Subjective Pt sitting in recliner upon arrival. Pt is insistent that she is DC today. Pt reports feeling ready and is excited. Pain Location: No Pain Reported Mental Status Patient Orientation: Person, Place, Situation Attachments: Oxygen Transfers SCALE: Activities may be completed with or without assistive devices. 1-Necqitjrbh-hsnmqig completes the activity by him/herself with no assistance from a helper. 5-Set-up or Clean-up Assistance-helper sets up or cleans up; patient completes activity. [place] assists only prior to or following the activity. 4-Supervision or Touching Assistance-helper provides verbal cues and/or touching/steadying and/or contact guard assistance as patient completes activity. Assistance may be provided throughout the activity or intermittently. 3-Partial/Moderate Assistance-helper does LESS THAN HALF the effort. [place] lifts, holds or supports trunk or limbs, but provides less than half the effort. 2-Substantial/Maximal Assistance-helper does MORE THAN HALF the effort. [place] lifts or holds trunk or limbs and provides more than half the effort. 9-Vmmfirpwk-zrdbbv does ALL the effort. Patient does none of the effort to complete the activity. Or, the assistance of 2 or more helpers is required for the patient to complete the activity. If activity was not attempted, code reason: 7-Patient Refused. 9-Not Applicable-not attempted and the patient did not perform the activity before the current illness, exacerbation or injury. 10-Not Attempted due to Environmental Limitations-(lack of equipment, weather restraints, etc.). 88-Not Attempted due to Medical Conditions or Safety Concerns. Treatments TF to standing to use BR. SYSTEM ADMINISTRATION ADVISOR reviews questions on EX and pt reports has been completing PT and will continue after DC. Pt resting with all needs met, call light in hand. Assessment Current Status: Good Progress Pt alfreda. tx well. PT Corporate Account Executive Goals Group Home Goals PT Group Home Goals Time Frame: Nov 29, 2019 Roll Left & Right (QC): 6 Sit to Lying (QC): 6 Lying-Sitting on Side/Bed(QC): 6 Sit to Stand (QC): 6 Chair/Sil-gq-Pbkoz Xfer(QC): 6 Toilet Transfer (QC): 6 Does the Patient Walk: Yes Walk 10 feet (QC): 6 Walk 50ft with 2 Turns (QC): 6 Walk 150 ft (QC): 6 PT Plan Problem List Problem List: Activity Tolerance Treatment/Plan Treatment Plan: Continue Plan of Care Treatment Plan: Education, Functional Activity Paty, Functional Strength, Gait, Safety, Therapeutic Exercise, Transfers Treatment Duration: Nov 29, 2019 Frequency: 5 times per week Estimated Hrs Per Day: .25 hour per day Safety Risks/Education Patient Education: Correct Positioning, Safety Issues Teaching Recipient: Patient Teaching Methods: Discussion Response to Teaching: Verbalize Understanding Time/GCodes Time In: 1045 Time Out: 1100 Total Billed Treatment Time: 15 Total Billed Treatment 1, FA (15m) KATHIE BRADLEY SYSTEM ADMINISTRATION ADVISOR Nov 20, 2019 14:21
== END 2019-11-20 16:45 | disposition home health service (06) | DRG 178 ==
LOC: ICU 16:59 → 4TH 19:18
PROVIDERS: ADMIT Family Medicine; ATTEND Internal Medicine
DX: U07.1 COVID-19 (principal); J96.11 Chronic respiratory failure with hypoxia; J44.9 Chronic obstructive pulmonary disease, unspecified; E11.9 Type 2 diabetes mellitus without complications; I10 Essential (primary) hypertension; I48.0 Paroxysmal atrial fibrillation; E03.9 Hypothyroidism, unspecified
CPT/HCPCS: 36415; 71045; 80053; 82728; 82962; 83615; 83735; 83880; 85007; 85025; 85027; 85379; 87081; 87635; 94640